=== PATIENT | female | born 1975 ===

== ENCOUNTER 2018-05-24 12:32 | Emergency (ER) | payer SELFPAY ==
--- NOTE | 2018-05-24 13:10 | ED ---
Lower Extremity - HPI Summary HPI Summary: 42 female presents with right leg pain since yesterday. She states she was walking and she slipped on a wet rug and twisted her knee and felt a pop. She states she has pain down right knee to her foot. She denies any previous injury to the area. No numbness or tingling. She has not been able to weight on it due to pain. She denies any popping or locking. She has been taking ibuprofen for pain. - History of Current Complaint Chief Complaint: UCLowerExtremity Stated Complaint: LEG INJURY Time Seen by Provider: 05/24/18 12:50 Hx Last Menstrual Period: 05/10/18 Pain Intensity: 10 - Allergies/Home Medications Allergies/Adverse Reactions: Allergies Allergy/AdvReac Type Severity Reaction Status Date / Time No Known Allergies Allergy Verified 05/24/18 12:48 Home Medications: Home Medications Acetaminophen [APAP] 650 mg PO 05/24/18 [History] PMH/Surg Hx/FS Hx/Imm Hx Endocrine/Hematology History: Denies: Hx Anticoagulant Therapy Cardiovascular History: Denies: Hx Auto Implanted Cardiovert Defib - Surgical History Surgery Procedure, Year, and Place: [place] Infectious Disease History: No Infectious Disease History: Denies: Traveled Outside the [place] in Last 30 Days - Family History Known Family History: Positive: Hypertension - Social History Alcohol Use: Occasionally Substance Use Type: Reports: None Smoking Status (MU): Light Every Day Tobacco Smoker Type: Cigarettes Review of Systems Negative: Fever Negative: Chest Pain Negative: Shortness Of Breath Positive: Myalgia - right leg pain All Other Systems Reviewed And Are Negative: Yes Physical Exam Triage Information Reviewed: Yes Vital Signs On Initial Exam: Initial Vitals Temp Pulse Resp BP Pulse Ox 98.4 F 57 18 149/90 98 05/24/18 12:44 05/24/18 12:44 05/24/18 12:44 05/24/18 12:44 05/24/18 12:44 Vital Signs Reviewed: Yes Appearance: Positive: Well-Appearing Skin: Positive: Warm, Dry Head/Face: Positive: Normal Head/Face Inspection Eyes: Positive: Normal, Conjunctiva Clear ENT: Positive: Pharynx normal Respiratory/Lung Sounds: Positive: Clear to Auscultation, Breath Sounds Present Cardiovascular: Positive: Normal, RRR Musculoskeletal: Positive: Limited @ - right knee, ankle, and foot, Other - Tenderness over joint space of right knee, limited range of motion with pain, positive ballottement. Possible laxity with patient unable to tolerate movement , good pulses Neurological: Positive: Normal Psychiatric: Positive: Normal Diagnostics - Vital Signs Vital Signs Temp Pulse Resp BP Pulse Ox 05/24/18 12:44 98.4 F 57 18 149/90 98 - Laboratory Lab Statement: Any lab studies that have been ordered have been reviewed, and results considered in the medical decision making process. - Radiology foot, ankle, knee Xray Interpretation: No Acute Changes Radiology Interpretation Completed By: Radiologist Lower Extremity Course/Dx - Course Course Of Treatment: 42 female presents with right leg pain since yesterday. She states she was walking and she slipped on a wet rug and twisted her knee and felt a pop. She states she has pain down right knee to her foot. She denies any previous injury to the area. No numbness or tingling. She has not been able to weight on it due to pain. She denies any popping or locking. She has been taking ibuprofen for pain. On exam tenderness over right knee. Has importance. Neurovascular intact. X-rays normal. Has small joint effusion. With mechanism and likely has meniscal injury. We'll give knee immobilizer and have follow-up with orthopedic. We'll have follow-up with primary about blood pressure. Patient understands agrees with plan. - Diagnoses Differential Diagnosis/HQI/PQRI: Positive: Fracture (Closed), Sprain, Strain Provider Diagnoses: Right knee pain, Right leg pain, Elevated blood pressure reading Discharge - Sign-Out/Discharge Documenting (check all that apply): Patient Departure - Discharge Plan Condition: Good Disposition: HOME Patient Education Materials: Knee Pain (ED) Referrals: Casandra Spencer MD [Medical Doctor] - [facility] [Outside] Additional Instructions: Use immobilizer Stay off knee as much as possible Ice, elevate, Ibuprofen or Tylenol every 6 hours for pain Follow up with ortho if no improvement est care with PCP to follow up about blood pressure as is elevated at this time Return to ED if develop or any new or worsening symptoms - Billing Disposition and Condition Condition: GOOD Disposition: Home
--- NOTE | 2018-05-24 13:35 | RAD ---
HISTORY: right ankle pain COMPARISONS: None VIEWS: 6, Frontal, lateral, and oblique views of the right ankle and right foot FINDINGS: BONE DENSITY: Normal. BONES: There is no displaced fracture. 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 ALIGNMENT: There is hallux valgus. SOFT TISSUES: Unremarkable. OTHER FINDINGS: None. IMPRESSION: OSTEOARTHRITIS. NO ACUTE OSSEOUS INJURY TO THE RIGHT ANKLE OR RIGHT FOOT. IF SYMPTOMS PERSIST, RECOMMEND REPEAT IMAGING.
--- NOTE | 2018-05-24 13:37 | RAD ---
Indication: Generalized RIGHT knee pain post twisting fall. Comparison: None. Technique: RIGHT knee: AP, tunnel, lateral, sunrise views. REPORT AND IMPRESSION: #. Small joint effusion. Negative for fracture or malalignment. Unremarkable soft tissue contours.
== END 2018-05-24 13:46 | disposition home or self-care (01) ==
LOC: UCEAST 12:32
DX: M79.604 Pain in right leg (principal); M25.561 Pain in right knee; F17.210 Nicotine dependence, cigarettes, uncomplicated; W50.2XXA Accidental twist by another person, initial encounter; Y93.01 Activity, walking, marching and hiking; Y92.9 Unspecified place or not applicable; R03.0 Elevated blood-pressure reading, without diagnosis of hypertension
CPT/HCPCS: 99203; G0463